=== PATIENT | male | born 1995 | race Caucasian/White ===

== ENCOUNTER 2020-04-03 09:05 | Day surgery (SDC) | payer BC ==
[~2020-04-03] VITALS: Ht 180.3 cm; Wt 86.3 kg
[~2020-04-03 09:05] MED LIST: MULTI VITAMIN1 EACH PO
--- NOTE | 2020-04-03 12:00 | NUR ---
04/03/20 1200 Lelia Vasquez 1154- PT ARRIVES TO PACU NONAROUSABLE TO NOXIOUS STIMULI WITH AN OPA IN PLACE. RESP EVEN AND UNLABORED. OXYGEN SAT HIGH 90'S TO 100% ON 10L VIA MASK. 1155- OXYGEN TITRATED DOWN TO 6L VIA MASK.
[2020-04-03] MEDS ORDERED: OXYCODON-ACETA1 EAC2 PO (12:16)
[2020-04-03] MEDS ORDERED: IBUPROFEN600 MG PO (12:16)
[2020-04-03] MEDS ORDERED: ACETAMINOPHEN500 MG PO (12:17)
--- NOTE | 2020-04-03 13:31 | NUR ---
REQUESTS PAIN MEDICINE 3/10 PAIN EATING PUDDING DRINKING WATER.
--- NOTE | 2020-04-03 14:46 | NUR ---
1400 AMB TO BR VOIDS 300MLS DARK URINE. DENIES FEELING LIGHT HEADED OR DIZZY WITH BEING UP.
--- NOTE | 2020-04-06 09:13 | OR ---
[facility] [address] [place], [place] [address] Signed DATE OF OPERATION: 04/03/2020 SURGEON: Lew Mejia MD PREOPERATIVE DIAGNOSIS: Right inguinal hernia. POSTOPERATIVE DIAGNOSIS: Right inguinal hernia with indirect sac and floor attenuation. PROCEDURE: Repair of right inguinal hernia with implantation of Prolene mesh and high ligation excision of sac. Excision of cord lipoma. ANESTHESIA: General LMA; Lew Kwong CRNA and local 20 mL of 0.25% Marcaine with epinephrine. INDICATION: This 25-year-old white man is a patient of [facility] and found to have some pain in the right groin after a lengthy amount of moving of household goods. He has been found to have a right inguinal hernia, which is reducible. There is some question of left inguinal hernia as well. There is no problem with urinary outlet obstructive symptoms, chronic cough or constipation. He is admitted at this time to undergo right inguinal hernia repair. He understands risks of bleeding, infection, recurrent risks and wished to proceed. FINDINGS: There was an indirect hernia sac, which was within the substance of the cord. He also had a lipoma of the cord, which was excised. Additionally, the floor of the inguinal canal was attenuated. Implantation of Prolene mesh was undertaken in an underlay technique in addition to high ligation excision of the sac. The ilioinguinal nerve was well identified and completely free of encumbrance in the repair in anyway. There were no other findings of concern. DESCRIPTION OF PROCEDURE: The patient was brought to the operating room, given a general anesthetic. Preoperative antibiotic Ancef was given. Sequential compression device stockings used and heparin subcutaneously administered. The lower abdomen was clipped and prepared with a chlorhexidine solution and draped sterilely. A small incision was made cephalad to pubic tubercle on the right. Dissection was carried through the subcutaneous tissue Electronically Signed By: LEW MEJIA MD 04/06/20 0913 PATIENT NAME: PAYAM ODELL OPERATIVE REPORT DATE OF : [birth year] REPORT #: [id number] PHYSICIAN: LEW MEJIA MD PCP: DOTTIE HOSKINS PAC REPORT IS CONFIDENTIAL AND NOT TO BE RELEASED WITHOUT AUTHORIZATION [facility] [address] [place], [place] [address] Signed with blunt and electrocautery dissection. External oblique was incised along its fibers revealing the underlying cord. An ilioinguinal nerve branch was identified, dissected free and reflected around the external oblique. The cord was more fully mobilized from the floor of the inguinal canal and encircled with a [place] drain. Dissection of the cremasteric muscle fibers of the cord revealed an indirect hernia sac. This was freed with all due care from surrounding cord structures, noting also a relatively sizable lipoma of the cord. Lipoma of the cord was dissected free and its pedicle secured with hemostats, divided and ligated and the specimen passed for permanent pathology. Once the hernia sac was completely freed, it was opened and internal inspection showed only a small sliding component of bladder fat. The hernia sac free from this area was secured with two separate interrupted 2-0 silk sutures and the redundant hernia sac amputated and passed for pathology. Allis clamps applied to the tendon of the transversus abdominis. The attenuated fibers of the fascia of the transversalis were divided with electrocautery and using blunt dissection, the properitoneal fat was dissected free. A segment of Prolene mesh was cut to the appropriate configuration and secured in an underlay technique with interrupted 2-0 Prolene sutures. The tails of the graft were taken laterally around the cord, secured as well. Extreme care was taken to avoid encumbrance of the ilioinguinal nerve. A 20 mL in total of 0.25% Marcaine with epinephrine was injected locally for its postoperative analgesic benefit. The cord and the ilioinguinal nerve were replaced into the canal and the external oblique was reapproximated with running 2-0 Vicryl suture. Tammie layer was reapproximated with interrupted 2-0 Vicryl and skin closed with running subcuticular 3-0 Vicryl. Steri-Strips were applied. A silver sponge dressing was also applied. The patient tolerated procedure well. There were no complications Sponge, needle, and instrument counts were reported as correct x3. MD ENEDELIA Rangel/MODL /[id number] cc: Dottie Hoskins PA-C Copies: DOTTIE HOKSINS PAC Electronically Signed By: LEW MEJIA MD 04/06/20 0913 PATIENT NAME: PAYAM ODELL OPERATIVE REPORT DATE OF : [birth year] REPORT #: [id number] PHYSICIAN: LEW MEJIA MD PCP: DOTTIE HOSKINS REPORT IS CONFIDENTIAL AND NOT TO BE RELEASED WITHOUT AUTHORIZATION [address] [address] Signed ~ Electronically Signed By: LEW MEJIA MD 04/06/20912 PATIENT NAME: PAYAM ODELL OPERATIVE REPORT DATE OF : [birth year] REPORT #: [id number] PHYSICIAN: LEW MEJIA MD PCP: DOTTIE HOSKINS PAC REPORT IS CONFIDENTIAL AND NOT TO BE RELEASED WITHOUT AUTHORIZATION
--- NOTE | 2020-04-06 15:01 | PATH ---
[facility] [address] [place], [place] [address] Signed SPECIMEN(S): A RIGHT INDIRECT HERNIA SAC SPECIMEN(S): B LIPOMA OF CORD SPECIMEN SOURCE: A. RIGHT INDIRECT HERNIA SAC B. LIPOMA OF CORD CLINICAL HISTORY: Repair right inguinal hernia. FINAL PATHOLOGIC DIAGNOSIS: A. Right indirect hernia sac: - Benign fibromembranous soft tissue with focal slight chronic inflammation, consistent with clinical hernia sac. B. Lipoma of cord, excision: - Benign lobulated adipose tissue consistent with clinical lipoma. JVR:cml:C2NR MICROSCOPIC EXAMINATION: Histologic sections of all submitted blocks are examined by light microscopy. These findings, together with the gross examination, support the pathologic diagnosis. GROSS DESCRIPTION: Two specimens are received in two containers, labeled "CH." A. The specimen, labeled "CH," and designated on the requisition "right indirect hernia sac," is received in formalin and consists of one piece of pink-mitchell soft to membranous tissue (2.5 x 1.0 x 0.7 cm in aggregate). The specimen is submitted entirely in cassette (A1). B. The specimen, labeled "CH," and designated on the requisition "lipoma of cord," is received in formalin and consists of one yellow-mitchell, encapsulated portion of adipose (6.3 x 3.7 x 1.4 cm). The specimen is serially sectioned to reveal a yellow-mitchell, fatty cut surface. 7Th Grade Teacher sections are submitted in cassettes (B1, B2). AC (under the direct supervision of a pathologist) PERFORMING LABORATORY: The technical component was performed by [facility] [employer] [address] (Homogenizer Operator: Wendy Solis MD; CLIA# [id number]). Professional interpretation was performed by [employer] PATIENT NAME: PAYAM ODELL PATHOLOGY DATE OF : [birth year] REPORT #: [id number] PHYSICIAN: MICHELLE PATHOLOGY PCP: ROSA MARIA HOSKINS PAC REPORT IS CONFIDENTIAL AND NOT TO BE RELEASED WITHOUT AUTHORIZATION [address] [address] [place] [address] (Homogenizer Operator: Salvador Romero M.D.). Diagnostician: Salvador Romero MD Pathologist Electronically Signed 04/06/2020 Copies: ~ PATIENT NAME: PAYAM ODELL PATHOLOGY DATE OF : [birth year] REPORT #: [id number] PHYSICIAN: MICHELLE JACKSON PCP: ROSA MARIA HOSKINS PAC REPORT IS CONFIDENTIAL AND NOT TO BE RELEASED WITHOUT AUTHORIZATION
== END 2020-04-03 14:30 | disposition home or self-care (01) ==
LOC: DS 09:05
PROVIDERS: ATTEND Surgery
PROC: 0YU50JZ Supplement Right Inguinal Region with Synthetic Substitute, Open Approach (ICD-10-PCS; principal; 2020-04-03 10:30)
DX: K40.90 Unilateral inguinal hernia, without obstruction or gangrene, not specified as recurrent (principal); D17.6 Benign lipomatous neoplasm of spermatic cord
CPT/HCPCS: C1781; J0330; J0690; J1100; J1644; J1885; J2250; J2405; J2704; J2765; J3010; J7121

== ENCOUNTER 2024-01-25 07:45 | Day surgery (SDC) | payer OTHER ==
[2024-01-22 08:38] VITALS: BP 127/75
[~2024-01-25] VITALS: Ht 180.3 cm; Wt 72.7 kg
[~2024-01-25 07:45] MED LIST changes: +ACETAMINOPHEN500 MG PO; +CEFAZOLIN SODIUM 2 GM/20 ML SYR IV SCH; +HEParin SOD (PORCINE) 5,000 UNIT/0.5 ML SYR SUB-Q SCH; +IBLOOD GLUCOSE TEST STRIP 1 EA TEST VI PRN; +IBUPROFEN600 MG PO; +LACTATED RINGER'S 1,000 ML IV SCH; +LIDOCAINE HCL 1% 5 ML SDV INJ ONE; +OXYCODON-ACETA1 EAC2 PO
[2024-01-25 08:11] VITALS: BP 141/77
[2024-01-25 08:12] VITALS: BP 141/77
[2024-01-25] MEDS ORDERED: MIDAZOLAM HCL 2 MG/2 ML VIAL ONE (09:24)
[2024-01-25] MEDS ORDERED: KETOROLAC TROMETHAMINE 30 MG/ML VIAL ONE (09:25)
[2024-01-25] MEDS ORDERED: dexmedeTOMIDine HCl 200 MCG/2 ML VIAL ONE (09:25)
[2024-01-25] MEDS ORDERED: LIDOCAINE HCL 1% 30 ML SDV ONE (09:25)
[2024-01-25] MEDS ORDERED: propofoL 200 MG/20 ML VIAL ONE (09:25)
[2024-01-25] MEDS ORDERED: ondansetron HCL 4 MG/2 ML VIAL ONE (09:25)
[2024-01-25] MEDS ORDERED: DEXAMETHASONE SOD PHOS 4 MG/ML VIAL ONE (09:25)
[2024-01-25] MEDS ORDERED: ACETAMINOPHEN 1,000 MG/100 ML VIAL ONE (09:40)
[2024-01-25] MEDS ORDERED: fentaNYL citrate 100 MCG/2 ML VIAL ONE (09:40)
[2024-01-25] MEDS ORDERED: LACTATED RINGER'S 1,000 ML IV ONE (10:32)
--- NOTE | 2024-01-25 11:04 | NUR ---
01/25/24 1104 Thuy Srinivasan 9119-PATIENT ARRIVED TO PACU ON 6L MASK NONAROUSABLE ORAL AIRWAY IN PLACE RR EVEN O2 100% SINUS BRADYCARDIA HR MID 40'S. PREOP HR 49. DRESSING TO LEFT GROIN CDI. IVF INFUSING.
[2024-01-25] MEDS ORDERED: LACTATED RINGER'S 1,000 ML IV SCH (11:15)
[2024-01-25] MEDS ORDERED: ACETAMINOPHEN 500 MG TAB PO PRN (11:15)
[2024-01-25] MEDS ORDERED: HYDROCODONE/ACETA 5/325 TAB PO PRN (11:15)
[2024-01-25] MEDS ORDERED: NALOXONE HCL 0.4 MG SYR IV PRN ×2 (11:15→11:30)
[2024-01-25] MEDS ORDERED: HYDROCODON-ACE1 EA10 PO (11:18)
[2024-01-25] MEDS ORDERED: ACETAMINOPHEN500 MG PO (11:18)
[2024-01-25] MEDS ORDERED: fentaNYL citrate 50 MCG/ML SDV IV PRN (11:30)
[2024-01-25] MEDS ORDERED: ondansetron HCL 4 MG/2 ML VIAL IV PRN (11:30)
[2024-01-25] MEDS ORDERED: IBLOOD GLUCOSE TEST STRIP 1 EA TEST VI PRN (11:30)
[2024-01-25 11:39] VITALS: BP 121/71
--- NOTE | 2024-01-25 11:43 | NUR ---
1135 PT BACK TO DS FROM PACU AWAKE AND ALERT REPORTS HE HAS A SORE THROAT PT TAKING SIPS OF WATER TOLERATES WELL. PT REPORTS "DULL SOMETHING" POINTING TO HIS LLQ. WARM BLANKETS PLACED ON PT. CALL LT WITHIN REACH. HIS GIRLFRIEND IS AT BEDSIDE.
[2024-01-25 12:31] VITALS: BP 114/71
--- NOTE | 2024-01-25 12:32 | NUR ---
PT ALERT AND AWAKE EATING CRACKERS AND JELLO TOLERATES WELL. PT REPORTS PAIN IS STILL MINIMAL.
--- NOTE | 2024-01-25 12:53 | NUR ---
PT EATING CHICKEN NOODLE SOUP TOLERATES WELL. DRESSING CLEAN AND DRY. PT CONTINUES TO REPORT PAIN IN MINIMAL AND TOLERABLE
[2024-01-25 13:23] VITALS: BP 118/71
--- NOTE | 2024-01-25 13:49 | NUR ---
1320 PT AMBULATED TO THE BATHROOM WITHOUT ASSIST. HE IS ABLE TO VOID 600ML OF DARK YELLOW URINE. DISCHARGE INSTRUCTIONS GIVEN TO PT AND HIS GIRLFRIEND THEY BOTH VOICED UNDERSTANDING. PT ABLE TO DRESS HIMSELF WITH MINIMAL ASSIST. A SMALL AMOUNT OF DRAINAGE NOTED UNDER DRESSING. ADVISED PT THAT IF DRESSING GETS SATURATED OR IF HE NOTICES BULGING UNDER DRESSING HE SHOULD GO ER OR CALL DR MEJIA'S OFFICE.
--- NOTE | 2024-01-25 13:56 | NUR ---
1330 PT REPORTS PAIN AT 3/10 HE STATES THIS IS TOLERABLE FOR HIM.
--- NOTE | 2024-01-29 13:20 | OR ---
[facility] [address] [place], [place] [address] Signed DATE OF OPERATION: 01/25/2024 SURGEON: Lew Mejia MD PREOPERATIVE DIAGNOSIS: Symptomatic left inguinal hernia. POSTOPERATIVE DIAGNOSIS: Symptomatic left inguinal hernia, indirect type. PROCEDURE: Repair of left indirect inguinal hernia including ligation excision of indirect hernia sac and implantation of Prolene mesh underlay technique. ANESTHESIA: General LMA, Kymberly Espinal CRNA and local 10 mL of 0.25% Marcaine with epinephrine. INDICATION: This 29-year-old white man is known to me from the past. He is a patient of [facility]. He underwent right inguinal hernia repair by me in 2019. He was noted to have a very small left inguinal hernia at that time, which has grown overtime and now is symptomatic. Hernia repair was offered previously, but he was not symptomatic enough to wish to proceed with it. He has no evidence of incarceration of the hernia. He is admitted at this time to undergo repair of the left inguinal hernia. He understands the risk of bleeding, infection, recurrence and other unforeseen complications including testicular injury, chronic pain, and so on. Understanding all this, he wished to proceed. FINDINGS: A moderately large indirect hernia sac was noted. Additionally, he had a lipoma of the cord which was excised. Cord structures were normal. The floor was largely intact though somewhat weakened. Implantation of Prolene mesh was undertaken in addition to excision and ligation of the indirect sac. DESCRIPTION OF PROCEDURE: The patient was brought to the operating room, given a general LMA type anesthetic. The lower abdomen was clipped and prepared with chlorhexidine solution and draped sterilely. Preoperative antibiotics were given. After sterile draping, an incision was made cephalad to the pubic tubercle on the left and dissection was carried through the subcutaneous tissue with electrocautery. The external oblique was incised along its Electronically Signed By: LEW MEJIA MD 01/29/24 1320 PATIENT NAME: PAYAM ODELL OPERATIVE REPORT DATE OF : [birth year] REPORT #: [id number] PHYSICIAN: LEW MEJIA MD PCP: DOTTIE MEDRANO PAC REPORT IS CONFIDENTIAL AND NOT TO BE RELEASED WITHOUT AUTHORIZATION [facility] [address] [place], [place] [address] Signed fibers revealing the underlying cord structures. An ilioinguinal nerve branch was dissected free from the cremasteric muscle fibers of the cord and reflected medially, preserving it. The cord was mobilized from the floor with blunt electrocautery dissection with meticulous care with Pamela drain. There appeared to be an indirect hernia sac. The floor was largely intact except at the internal ring, which was somewhat effaced. Dissection was begun around the base of the cord, freeing the cremasteric muscle fibers circumferentially. Revealed was a lipoma of the cord lateral to it, which was dissected free and ultimately secured at its base with hemostats, divided and vascular pedicle secured with 2-0 Vicryl ties. The cord was then dissected free from the indirect hernia sac isolating the cord structures completely from the hernia sac. The hernia sac was elevated and found to be approximately 4-5 cm in length. It was incised and internal inspection showed no sign of sliding component or other abnormality. The origin of the indirect sac was secured with 2-0 silk suture doubly applied and redundant hernia sac amputated and passed for pathology. Inspection of the floor showed a somewhat attenuated internal ring but the floor otherwise was reasonably intact. The floor was incised with electrocautery. An Allis clamp applied to the tendon of the transversus abdominis. A segment of Prolene ProGrip mesh was secured in an underlay technique with interrupted 2-0 Prolene sutures. A defect was cut in the graft to accommodate cord structures. Special care was taken to incorporate the tails of the graft lateral to the cord with all due care to avoid excessive closure. The ilioinguinal nerve was replaced into the canal and the external oblique was reapproximated over it with running 2-0 Vicryl suture. Tammie layer was reapproximated with interrupted 2-0 Vicryl and 10 mL of 0.25% Marcaine with epinephrine injected locally. The skin was closed with running subcuticular 3-0 Vicryl. Steri-Strips were applied as was an Acticoat dressing. The patient was ultimately extubated and transferred to the recovery room in good condition having suffered no complication. Sponge, needle, and instrument counts reported as correct x3. MD ENEDELIA Rangel/SUGEYL /[id number] cc: Dottie Medrano PA-C Electronically Signed By: LEW MEJIA MD 01/29/24 1320 PATIENT NAME: PAYAM ODELL OPERATIVE REPORT DATE OF : [birth year] REPORT #: [id number] PHYSICIAN: LEW MEJIA MD PCP: DOTTIE MEDRANO REPORT IS CONFIDENTIAL AND NOT TO BE RELEASED WITHOUT AUTHORIZATION [facility] [address] [place], [place] [address] Signed Copies: DOTTIE MEDRANO ~ Electronically Signed By: LEW MEJIA MD 01/29/24 1320 PATIENT NAME: PAAYM ODELL OPERATIVE REPORT DATE OF : [birth year] REPORT #: [id number] PHYSICIAN: LEW MEJIA MD PCP: DOTTIE MEDRANO REPORT IS CONFIDENTIAL AND NOT TO BE RELEASED WITHOUT AUTHORIZATION
--- NOTE | 2024-01-30 11:27 | PATH ---
[facility] [address] [place], [place] [address] Signed SPECIMEN(S): A LIPOMA OF CORD SPECIMEN(S): B LEFT INDIRECT HERNIA SAC SPECIMEN SOURCE: A. LIPOMA OF CORD B. LEFT INDIRECT HERNIA SAC CLINICAL HISTORY: Inguinal hernia FINAL PATHOLOGIC DIAGNOSIS: A. Lipoma of cord: - Mature adipose tissue, clinically lipoma B. Indirect hernia sac: - Mesothelial lined fibroconnective tissue, clinically hernia sac BRP MICROSCOPIC EXAMINATION: Histologic sections of all submitted blocks are examined by light microscopy. These findings, together with the gross examination, support the pathologic diagnosis. GROSS DESCRIPTION: A. The specimen, labeled and designated "Sam, Rahul, lipoma of cord," is received in formalin and consists of portion yellow adipose tissue measuring 4.1 x 3.0 x 1.5 cm. Specimen is surrounded by pink-mitchell membranous tissue and is entirely inked blue. Specimen sectioned to reveal homogenous yellow lobulated cut surfaces. Computer Game Programmer sections submitted single cassette. B. The specimen, labeled and designated "Sam, C, indirect hernia sac," is received in formalin and consists of single fragment pink-mitchell membranous tissue measuring 6.5 x 5.0 x 0.3 cm. Specimen sectioned to reveal smooth inner lining. No grossly identifiable firm areas discrete lesions present. Computer Game Programmer sections submitted in a single cassette. ENEDELIA (under the direct supervision of a pathologist) The Gross Description was prepared using a voice recognition system. The report was reviewed for accuracy; however, sound-alike word errors, addition and/or deletions may occur. If there is any question about this report, please contact Client Services. PATIENT NAME: PAYAM ODELL PATHOLOGY DATE OF : [birth year] REPORT #: [id number] PHYSICIAN: MICHELLE JACKSON PCP: ROSA MARIA HOSKINS PAC REPORT IS CONFIDENTIAL AND NOT TO BE RELEASED WITHOUT AUTHORIZATION [facility] [address] [facility] [place] [place] [address] Signed ADDITIONAL NOTES: Immunohistochemical and/or in situ hybridization studies if performed in this case included appropriate positive controls that reacted as expected. This test was developed and its performance characteristics determined by [facility]. It has not been cleared or approved by the U.S. Food and Drug Administration. The FDA has determined that such clearance or approval is not necessary. This test is used for clinical purposes. It should not be regarded as investigational or for research. [facility] is certified under the Clinical Laboratory Improvement Amendments of 1988 (CLIA) as qualified to perform high complexity clinical laboratory testing. PERFORMING LABORATORY: Technical component was performed by [facility], [address] [place] [id number] (CLIA# [id number]). Professional interpretation was performed by [facility], [address] [place] [id number] (CLIA#: [id number]). Diagnostician: Bonifacio Higgins MD Pathologist Electronically Signed 01/30/2024 Copies: ~ PATIENT NAME: PAYAM ODELL PATHOLOGY DATE OF : [birth year] REPORT #: [id number] PHYSICIAN: MICHELLE JACKSON PCP: ROSA MARIA HOSKINS PAC REPORT IS CONFIDENTIAL AND NOT TO BE RELEASED WITHOUT AUTHORIZATION
== END 2024-01-25 13:40 | disposition home or self-care (01) ==
LOC: DS 07:45
PROVIDERS: ATTEND Surgery
PROC: 0YU60JZ Supplement Left Inguinal Region with Synthetic Substitute, Open Approach (ICD-10-PCS; principal; 2024-01-25 09:30)
DX: K40.90 Unilateral inguinal hernia, without obstruction or gangrene, not specified as recurrent (principal); D17.6 Benign lipomatous neoplasm of spermatic cord; K21.9 Gastro-esophageal reflux disease without esophagitis; Z79.899 Other long term (current) drug therapy
CPT/HCPCS: 00830; C1781; J0131; J0690; J1100; J1644; J1885; J2250; J2405; J2704; J3010; J7121